=== PATIENT | female | born 1980 | race Caucasian/White ===

== ENCOUNTER 2017-01-03 15:28 | Observation (INO) ==
[2017-01-03] MEDS ORDERED: Ringers Solution, Lactated 1,000 ML ONE (16:01)
[2017-01-03] MEDS ORDERED: Ringers Solution, Lactated 1,000 ML IVC ONE (16:09)
[2017-01-03] MEDS ORDERED: Ondansetron 4 MG/2 ML VIAL IVP PRN (16:11)
--- NOTE | 2017-01-03 16:24 | OB/GYN Progress Note ---
Date of Encounter: 01/03/17 Time of Encounter: 16:17 - Assessment and Plan (1) Nausea and vomiting during Current Visit: Yes Status: Acute LR 1L bolus, zofran ivp (2) 28 weeks gestation of Current Visit: Yes Status: Acute (3) Cramping complicating , antepartum Current Visit: Yes Status: Acute Will observe contraction pattern. Will reassess after fluid bolus Subjective - Subjective Interval history: 36 year old pt. of Dr. Corona, presents to triage with nausea for the last 4 days, emesis and unable to keep food down for last 24 hours. Pt states she started cramping today and came to the hosptial, denies vaginal bleeding and leaking of fluid. Pt did have intercourse last night. Pt has a history or labor, but not delivery with 2 prior pregnancies. course uncomplicated except for vanishing twin. Antepartum ROS: movement normal, contractions, no loss of fluid, no vaginal bleeding Objective - Vital Signs Vital Signs: Intake and Output 01/03/17 01/03/17 01/03/17 07:59 15:59 23:59 Other: Weight 86.1 kg Patient Weight 01/03/17 23:59 Weight 86.1 kg - Exam FHR comments: Appropriate for gestational age baseline 150 Auscultation: bilateral: normal Abdomen: Present: normal appearance, soft, gravid Uterus: Present: normal Cervical dilation: fingertip Cervix effacement: 75 station: -3
[2017-01-03 18:56] LABS: Color,Urine Yellow (Yellow)
--- NOTE | 2017-01-03 18:56 | Discharge Summary ---
Date of Encounter: 01/03/17 Time of Encounter: 19:03 - Discharge Diagnosis (1) Nausea and vomiting during Priority: Primary Status: Acute Comments: 1L LR bolus and zofran given. Tolerated PO intake of juice and crackers without difficulty. (2) 28 weeks gestation of Priority: Secondary Status: Acute (3) Cramping complicating , antepartum Priority: Primary Status: Acute Comments: PT states feels much less crampy. Contractions have decreased. VE unchanged remains fingertip/75/-3 - Discharge Medications Home Medications: Vit Calc,Iron,Folic [ Vitamins] 1 each PO DAILY 05/15/16 [ History] Promethazine 01/03/17 [History] Tamiflu 01/03/17 [History] Allergies/Adverse Reactions: Allergies Penicillins [PCN] Allergy (Verified 05/15/16 12:01) swelling Date of admission: 01/03/17 15:28 Primary care physician: PCP NO - Patient Status Disposition: Home, Self-Care Condition: Good Functional capacity at discharge: independent ambulation Overall status at discharge: patient is back to baseline - Discharge Instructions Follow Up With: NO,PCP [Primary Care Provider] - Hospital Course RESIDENTIAL INSTALLER Time Attestation: Total time spent providing and/or coordinating discharge services: Time Spent: Less than 30 minutes Exam - Constitutional General appearance IM: A&O X 3 - Respiratory Respiratory exam: Present: CTAB - Cardiovascular Cardiovascular exam IM: Present: RRR, +S1 - GI/Abdominal GI/Abdominal exam IM: soft (gravid soft ) - Extremities Exam Extremities exam IM: Present: normal inspection - Neurological Exam Neurological exam: oriented X3 - VTE Reasons for not Prescribing Prophylaxis: Treatment not Indicated - Low risk for VTE
[2017-01-03 18:57] LABS: Bilirubin,Urine Negative (Negative); Blood,Urine Negative (Negative); Clarity,Urine Cloudy (Clear); Glucose,Urine (UA) Normal (Normal); Ketones,Urine Negative (Negative); Leukocyte Esterase,Urine Negative (Negative); Nitrite,Urine Negative (Negative); Protein,Urine 30 mg/dL (Neg-Trace); Specific Gravity,Urine 1.025 (1.010-1.025); Urobilinogen,Urine Normal (Normal)
[2017-01-03 19:01] LABS: Bacteria,Urine Moderate per hpf (None-Few); RBC,Urine 0-3 per hpf (0-3); Squamous Epithelial Cell,Urine Many per lpf (None-Few)
[2017-01-03 19:02] LABS: Mucus,Urine Many (Few)
== END 2017-01-03 19:38 | disposition home or self-care (01) ==
LOC: 1NENULAB

== ENCOUNTER 2017-02-24 16:46 | Observation (INO) ==
[2017-02-24 17:13] LABS: Bilirubin,Urine Negative (Negative); Blood,Urine Negative (Negative); Clarity,Urine Clear (Clear); Color,Urine Yellow (Yellow); Glucose,Urine (UA) Normal (Normal); Ketones,Urine Trace mg/dL (Negative); Leukocyte Esterase,Urine Negative (Negative); Nitrite,Urine Negative (Negative); Protein,Urine Negative (Neg-Trace); Specific Gravity,Urine 1.015 (1.010-1.025); Urobilinogen,Urine Normal (Normal)
--- NOTE | 2017-02-24 19:48 | OB/GYN Progress Note ---
Date of Encounter: 02/24/17 Time of Encounter: 19:30 - Assessment and Plan (1) and not yet delivered in third trimester Current Visit: Yes Status: Acute (2) 35 weeks gestation of Current Visit: Yes Status: Acute (3) uterine contractions in third trimester, antepartum Current Visit: Yes Status: Acute Labor precautions given she will be discharged home and she will follow up in the office in 2 days if no change Subjective - Subjective Interval history: Patient is a 36-year-old 6 para 3 at 35 weeks who presented to labor and delivery complaining of contractions every 1 minute lasting 90 seconds. She states this has been going on for approximately 2 hours prior to arriving to the hospital. She denied any dysuria urgency frequency or vaginal discharge no leaking of fluid. Patient states this is her fourth baby and she got concerned. Patient was having what appeared to be some contractions she described as 7 out of 10 pain she was talking did not appear to be then uncomfortable. On initial evaluation patient was 1 cm 50% and ballotable. We did have the patient ambulate for an hour she was placed back on the monitor no change in her contraction pattern and no change in cervical exam. At this point we felt it was safe to send patient home and she will follow up in the office if contractions get worse she will come back. Antepartum ROS: contractions Objective - Exam FHR: category 1 FHR comments: heart tones 140s reactive contractions irregular every 3-5 minutes Abdomen: Present: gravid Cervical dilation: 1 Cervix effacement: 50 station: ballotable - Labs Labs: Abnormal lab results Urine Ketones Trace mg/dL (Negative) H 02/24/17 17:04
== END 2017-02-24 19:52 | disposition home or self-care (01) ==
LOC: 1NENULAB
PROVIDERS: ADMIT Obstetrics & Gynecology; ATTEND Obstetrics & Gynecology

== ENCOUNTER 2017-03-08 13:45 | Observation (INO) ==
--- NOTE | 2017-03-08 14:25 | OB/GYN Progress Note ---
Date of Encounter: 03/08/17 Time of Encounter: 14:20 - Assessment and Plan (1) 37 weeks gestation of Current Visit: Yes Status: Acute (2) NST (non-stress test) reactive Current Visit: Yes Status: Acute (3) Cramping complicating , antepartum Current Visit: No Status: Acute No cervical change since last OB appointment. Mild, irregular contractions on toco. NST reactive. Discharge home with labor precautions. Subjective - Subjective Interval history: 36 year-old presenting at 37w1d with c/o contractions every minute lasting a minute. She also reports less movement today but she has been feeling some movement. No large gush of fluid but she had some wetness 2 days ago. No other complaints. This has been complicated by vanishing twin , borderline elevated 3 hour GTT, and Rh negative. Antepartum ROS: contractions, no loss of fluid (Pt does admit some thin discharge 2 days ago), no vaginal bleeding, no movement normal Objective - Exam FHR: category 1 FHR comments: 135 reactive NST Abdomen: Present: soft, gravid. Absent: tenderness Uterus: Absent: tenderness Cervical dilation: 1.5 Cervix effacement: 70 station: -2 Comments: nitrazine negative, no leaking fluid noted on exam
== END 2017-03-08 15:00 | disposition home or self-care (01) ==
LOC: 1NENULAB
PROVIDERS: ADMIT Obstetrics & Gynecology; ATTEND Obstetrics & Gynecology

== ENCOUNTER → 2017-03-16 06:25 | Observation (INO) ==
--- NOTE | 2017-03-16 07:03 | Discharge Summary ---
Date of Encounter: 03/16/17 Time of Encounter: 06:30 - Discharge Diagnosis (1) False labor Priority: Primary Status: Acute Comments: Serial SVE no change per RN Reactive NST per RN No contractions on TOCO or per palpation Discharged home with labor precautions and kick counts Follow up in office with routine care (2) 38 weeks gestation of Priority: Secondary Status: Acute - Discharge Medications Home Medications: Vit Calc,Iron,Folic [ Vitamins] 1 each PO DAILY 05/15/16 [ History] Allergies/Adverse Reactions: Allergies Penicillins [PCN] Allergy (Verified 03/16/17 04:58) swelling Date of admission: 03/16/17 04:48 Discharging clinician: Carmina Mendoza - Patient Status Disposition: Home, Self-Care Condition: Good Functional capacity at discharge: independent ambulation - Discharge Instructions Follow Up With: Maurice Corona MD [Partnered Physician] - Additional Instructions: LABOR AND DELIVERY DISCHARGE INSTRUCTIONS Signs and Symptoms to be Reported to your Doctor Immediately: * Sudden gush, continuous or intermittent lead of fluid from vagina (note the time of gush and color of fluid) * Onset of bright red vaginal bleeding with or without pain (if you had a vaginal exam during this visit you may notice some dark red spotting. This is normal.) * Contractions that are 5 minutes apart (from the beginning of one contraction to the beginning of the next) and last 45-60 seonds; contractions that you can no longer walk, talk or laugh through. * A change in the baby's activity. This could be an increase or decrease in activity. * Severe headache which does not go away with tylenol. * Sudden swelling in the face, hands, arms and/or legs. * Upper abdominal pain - sometimes associated with heartburn or nausea and is not relieved by Maalox, Mylanta or Tums. * Kick Counts __ One hour after a meal, lay down on one side in a quiet place. Count the number of time the baby moves during an hour. If less than 6 movements, notify your physician Diet: *Force fluids, 8 to 10 tall glasses of fluid per day - may include popsicles and jello *Limit caffeine - this includes chocolate, coffee, tea, any soft drink containing such as all zayra, Unruly Yellow and Mountain Dew Follow at [facility] on 03/20/17 as scheduled. - Diet and Activity Activity: resume usual activities as tolerated Diet: regular diet Hospital Course SHIP LOADER Time Attestation: Total time spent providing and/or coordinating discharge services: Time Spent: Less than 30 minutes - VTE Reasons for not Prescribing Prophylaxis: Treatment not Indicated - Low risk for VTE
== END | disposition home or self-care (01) ==
LOC: 1NENULAB
PROVIDERS: ADMIT Obstetrics & Gynecology; ATTEND Obstetrics & Gynecology

== ENCOUNTER 2017-03-19 21:34 | Inpatient (IN) ==
--- NOTE | 2017-03-19 20:25 | OB/GYN Progress Note ---
Date of Encounter: 03/19/17 Time of Encounter: 20:23 - Assessment and Plan (1) False labor Current Visit: Yes Status: Acute Pt's cervix remains 2/70/-2. Will observe for one hour and d/c home if no change and reassuring FWB. (2) False labor Current Visit: Yes Status: Acute (3) 38 weeks gestation of Current Visit: No Status: Acute Subjective - Subjective Principal diagnosis: False labor Interval history: Pt presents with freq sharp stabbing pains and UC's q 2 min. No vb or LOF Objective - Exam FHR: category 1 Auscultation: bilateral: normal Abdomen: Present: normal appearance Uterus: Present: normal
[2017-03-19] MEDS ORDERED: Famotidine 20 MG/2 ML VIAL IVP PRN (21:37)
[2017-03-19] MEDS ORDERED: Ondansetron 4 MG/2 ML VIAL IVP PRN (21:37)
[2017-03-19] MEDS ORDERED: Naloxone 0.4 MG/ML INJ IVP PRN (21:37)
[2017-03-19 22:07] LABS: Basophils % 0.1 %; Eosinophils # 0.2 K/mcL (0.0-0.6); Eosinophils % 1.5 %; Hematocrit 37.2 % (35.3-44.9); Hemoglobin 12.6 g/dL (11.5-15.4); Immature Granulocytes % 0.5 % (0-4); Lymphocytes # 1.6 K/mcL (0.6-4.6); Lymphocytes % 15.5 %; Mean Corpuscular HGB Conc 33.9 g/dL (31.6-35.5); Mean Corpuscular Hemoglobin 27.8 pg (28.0-33.3); Mean Corpuscular Volume 81.9 fL (83.0-100.0); Mean Platelet Volume 9.8 fL (9.4-12.4); Monocytes # 0.7 K/mcL (0.0-1.3); Monocytes % 6.7 %; Neutrophils # 7.8 K/mcL (1.6-8.9); Platelet Count 321 K/mcL (140-400); Red Blood Count 4.54 M/mcL (3.82-4.97); Red Cell Distribution Width 13.3 % (11.5-14.5); Segmented Neutrophils % 75.7 %
[2017-03-19] MEDS: Ringers Solution, Lactated 1,000 ML IVC SCH (22:21)
[2017-03-19] MEDS ORDERED: *HR* FentaNYL (PF) 100 MCG/2 ML VIAL ONE (23:19)
[2017-03-19] MEDS ORDERED: Epidural Premix (fent/bupiv) 0 ML EP ONE (23:19)
[2017-03-19] MEDS ORDERED: Bupivacaine-MPF 0.25% 10 ML VIAL ONE (23:19)
--- NOTE | 2017-03-20 00:08 | Anesthesia Evaluation PreOp ---
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 worse LLE > RLE) Other Medical History: Denies Any Significant HX Anesthesia History: No Prior Anesthetic Complications (h/o 3 previous CLEs; no issues with 1st, 2nd didn't work, 3rd took awhile to "set in"; denies personal or family h/o anesthesia complications w/ GA), Past Anesthesia : Yes Test: Positive Alcohol Use: none Drug use: none Medications and Allergies Allergies Penicillins [PCN] Allergy (Verified 03/19/17 20:24) swelling - Meds/Allergy Pre-op Review Medications Reviewed: Yes Allergies Reviewed: Yes Beta Blockers on Current Med List: No Anesthesia Results - Labs 03/19/17 21:55 Anesthesia Exam O2 Sat Height 1.55 m Weight 85.1 kg NPO (# of Hours): solids > 8hrs Pain Scale: 8 Pain Scale Used: Numeric (1 - 10) - HEENT Pupil (Motor): Pupils equal Mallampati: II Teeth: Normal Oral Opening: Greater than 3 - APPLICATIONS SALES CONSULTANT LOC: Oriented APPLICATIONS SALES CONSULTANT Motor: Normal RUE, Normal LUE, Normal RLE, Normal LLE, Normal Face APPLICATIONS SALES CONSULTANT Sensory: Normal: RUE, LUE, RLE, LLE, Face - Cardiac Rhythm: Regular Murmur: None - Pulmonary Breath Sounds: bilateral Clear Respiratory Effort: Symmetrical Anesthesia Assess/Plan ASA Score: 2 Modified Carmne Scale for Level of Consciousness: Cooperative, oriented, and tranquil Anesthetic Plan: Regional Autologous Blood: No Monitoring Plan: Standard Monitors Recovery Plan: Other
--- NOTE | 2017-03-20 00:11 | Anesthesia Procedures ---
Date of Encounter: 03/20/17 Time of Encounter: 00:09 Procedures: Anesthesia - Epidural/Spinal Patient ID/Chart reviewed: Yes Patient examined: Yes OB Eval: Gestational age: 38 weeks 5 days OB Eval: : 5 OB Eval: Hx Para: 3 OB Eval: Dilated at (cm): 2 OB Eval: Contractions: Non-stressed pattern Consent Obtained: Yes Supplemental Oxygen: None/Room Air Site Prep: Aseptic Technique, Sterile prep and drape, Povidone-Iodine 1% Patient position: upright Local Anesthetic: Lidocaine 1% Amount of Local Anesthetic used: 3 Touhy Needle Gauge: 18 Touhy Needle Depth (cm): 7 Catheter Depth at Skin (cm): 14 (cath placed at 2345) Test Dose (1.5% Lido + Epi): Volume given (mls): 5 (given in 2 equally divided doses over a period of 5 min) Test Dose Result: Negative Loading Dose: 0.25% Marcaine (mls): 5 Loading Dose: Fentanyl (mcg): 100 Loading Dose Administered: Thru Catheter Infusion Med: 0.125% Bupivacaine w/ 2 mcg/ml Fentanyl Infusion Rate (mls/hr): 12 (w/ demand bolus of 4mL q20min PRN) Catheter Secured in Place: Tegaderm, Tape Interspace Used: L3-L4 Loss of Resistance (LUIS): Yes Blood: No CSF: No Paresthesia: Yes (transient--LLE) Vitals + FHT's: please refer to [facility] RN's electronic documentation for VS
[2017-03-20] MEDS ORDERED: Bupivacaine-MPF 0.25% 10 ML VIAL EP ONE (00:12)
[2017-03-20] MEDS ORDERED: *HR* FentaNYL (PF) 100 MCG/2 ML VIAL EP ONE (00:12)
[2017-03-20] MEDS ORDERED: Epidural Premix (fent/bupiv) 110 ML EP SCH (00:15)
[2017-03-20] MEDS ORDERED: EPHEDrine 50 MG/ML VIAL ONE (00:20)
--- NOTE | 2017-03-20 00:50 | OB/GYN History & Physical ---
Date of Encounter: 03/20/17 Time of Encounter: 00:48 Assessment and Plan (1) 38 weeks gestation of Current visit: No Status: Acute Pt presents to labor and delivery with c/o freq uc's and pressure. Her cervix was 2 cm on arrival and after 4 hr cervix was 3 cm. She has no vaginal bleeding or LOF> (2) tachycardia during labor Current visit: Yes Status: Acute Upon arrival and during first hour of observation tachycardia mostly 170- 180 was noted. Pt also c/o constant abdominal pain. She had no fever and reported good movement and no recent smoking Given fact that cervix is making change and tachycardia will admit and expect . History of Present Illness Chief complaint: contractions, pelvic pain HPI: Ms. Rivas is a 36 year old female female presents with c/o pelvic pressure and pain that has worsened over last few hours. She reports constant sharp stabbing pains and uc's q 2-3 min. She denies VB or LOF. was complicated by vanishing twin in early gestation. Past Med Surg Social Fam HX - Past Medical History Source: patient, old records reviewed Medical history: asthma, GERD Psychiatric history: anxiety, depression, panic disorder - Past Surgical History Surgical History: cholecystectomy - Social History Smoking Status: Former smoker Smokeless Tobacco Status: No Alcohol use: none Drug use: none - Family History Mother Adopted: No Family Member Ethnicity: Non- Living Status: Still Living Hx Family Cardiac Disorders: Yes (HTN) Hx Family Respiratory Disorders: No Hx Family Cancer: Yes (endometriatic cancer, hysterectomy) Hx Family GI Disorders: No Hx Family Endocrine Disorder: No Hx Family Neuromuscular Disorders: No Hx Family Neurologic Disorders: No Hx Family HEENT Disorders: No Hx Family Autoimmune Disorders: No Father Adopted: No Living Status: Hx Family Cardiac Disorders: Yes (HTN) Hx Family Neuromuscular Disorders: No Hx Family Neurologic Disorders: No Obstetrical History - Pregnancies : 5 Medications and Allergies Allergies Penicillins [PCN] Allergy (Verified 03/19/17 20:24) swelling Exam - Constitutional Constitutional: well developed - HEENT HEENT: EOMI, PERRL - Neck Neck exam: full ROM - Lungs Respiratory exam: CTAB - Cardiovascular Cardiovascular exam: RRR - Abdomen Abdomen: Present: gravid - Extremities Extremities exam: full ROM Deep Tendon Reflex Grade: 2+ Normal - Cervix Dilation: 3 ((was 2 on arrival)) Effacement: 70 Station: -2 Results Result Diagrams: 03/19/17 21:55 Abnormal lab results MCV 81.9 fL (83.0-100.0) L 03/19/17 21:55 MCH 27.8 pg (28.0-33.3) L 03/19/17 21:55 All other labs normal. - VTE Reasons for not Prescribing Prophylaxis: Treatment not Indicated - Low risk for VTE
--- NOTE | 2017-03-20 00:57 | OB Labor Progress Note ---
Date of Encounter: 03/20/17 Time of Encounter: 00:56 Labor Progress Note - Subjective Subjective: Pt comfortable with epidural. - Cervix Cervix: 3/70/-2 - Heart Tones Heart Tones: 150's with RNST - [place]: uc's q 3 min - Interventions Interventions: AROM small amt of clear fluid. - Plan Plan: Expect .
[2017-03-20] MEDS ORDERED: Epidural Premix (fent/bupiv) 110 ML EP ONE ×4 (04:43→20:08)
--- NOTE | 2017-03-20 06:51 | OB Labor Progress Note ---
Date of Encounter: 03/20/17 Time of Encounter: 06:49 Labor Progress Note - Subjective Subjective: Pt comfortable with epidural, feeling more pressure. - Cervix Cervix: 4/70/-2 - Heart Tones Heart Tones: RNST - [place]: uc's q 2-3 min. - Plan Plan: Expect
[2017-03-20] MEDS ORDERED: Oxytocin 20 units/ LR 1000 mL 20 UNIT/1,000 ML BAG IVC ONE (07:32)
[2017-03-20] MEDS: Ringers Solution, Lactated 1,000 ML IVC SCH (07:55)
[2017-03-20] MEDS ORDERED: Oxytocin 20 units/ LR 1000 mL 20 UNIT/1,000 ML BAG IVC SCH ×2 (08:00→22:32)
--- NOTE | 2017-03-20 08:04 | OB Labor Progress Note ---
Date of Encounter: 03/20/17 Time of Encounter: 08:02 Labor Progress Note - Subjective Subjective: Pt resting in bed. States feels more of contractions, but comfortable with epidural - Cervix Cervix: 80/-3 - Interventions Interventions: Start pitcoin - Plan Plan: Pitocin per policy until adequate labor pattern Clear liquids Pain management per anesthesia Anticipate
[2017-03-20] MEDS ORDERED: *HR* Ropivacaine/PF 0.2% 10 ML AMPUL ONE ×3 (08:21→18:55)
[2017-03-20] MEDS ORDERED: *HR* FentaNYL (PF) 100 MCG/2 ML VIAL ONE ×2 (08:21→18:55)
--- NOTE | 2017-03-20 08:30 | Anesthesia Progress Note ---
Date of Encounter: 03/20/17 Time of Encounter: 08:29 Anesthesia Note - Note Note: 03/20/17 08:29 C/o lower abdominal cramping 7/10 with contractions. Bolus of 8ml 0.2% ropivicaine with 2 ml (100mcg) fentanyl given via epidural.
--- NOTE | 2017-03-20 12:33 | OB Labor Progress Note ---
Date of Encounter: 03/20/17 Time of Encounter: 12:31 Labor Progress Note - Subjective Subjective: Called to room by patient family. Pt reports feeling abdominal pain and pressure. - Cervix Cervix: 5/80/-2 - Heart Tones Heart Tones: 135/moderate/+accels/-decels/ Cat I - Interventions Interventions: IUPC placed. Pitocin at 10 - Plan Plan: Continue to increase pitocin per policy until adequate labor. Pain management by anesthesia Anticipate
--- NOTE | 2017-03-20 12:51 | Anesthesia Progress Note ---
Date of Encounter: 03/20/17 Time of Encounter: 12:49 Anesthesia Note - Note Note: 03/20/17 12:49 Called to patient room for low abdominal pain 8/10 with contractions, 10ml 0.2% ropivicaine via epidural.
--- NOTE | 2017-03-20 16:21 | OB Labor Progress Note ---
Date of Encounter: 03/21/17 Time of Encounter: 16:19 Labor Progress Note - Cervix Cervix: 5/80/-2 - Heart Tones Heart Tones: 130/moderate/accels with early;s and variable. - [place]: IUPC 2-3 minutes - Plan Plan: Continue current management plan but increase max pitocin dose to 30
--- NOTE | 2017-03-20 19:39 | Anesthesia Progress Note ---
Date of Encounter: 03/20/17 Time of Encounter: 19:37 Anesthesia Note - Note Note: 03/20/17 19:37 c/o 8/10 low abdominal pain with contractions. 8ml 0.2% ropivicaine with 100mcg fentanyl via epidural
--- NOTE | 2017-03-20 19:58 | OB Labor Progress Note ---
Date of Encounter: 03/20/17 Time of Encounter: 19:00 Labor Progress Note - Subjective Subjective: Patient feeling some pain with contractions, has had relief since epidural bolus - Cervix Cervix: 04/11/2 - Heart Tones Heart Tones: 135/accels/variables earlies/ Cat II - Plan Plan: Patient placed in lateral positions to encourage rotation. Pitocin per protocol until adequate contractions. Anticipate
[2017-03-20] MEDS ORDERED: Lidocaine 1% 20 ML MDV ONE (20:08)
--- NOTE | 2017-03-20 21:56 | OB/GYN Procedure Note ---
Delivery - Delivery Date: 03/20/17 Provider: Lisset Stevens ) Intrapartum events: none Delivery augmentation: rupture of membranes, pitocin Delivery monitor: external FHT, external uterine, internal uterine Anesthesia: local (for repair ), epidural - Infant (s) Infant A Delivery Date: 03/20/17 Infant Delivery Time: 21:17 Presentation: vertex Position: OA Route of delivery: Gender: Male Viability: Viable Pounds: 8 Ounces: 3 Weight Gram: 3710 kg at 1 minute: 8 at 5 mins: 9 Shoulder Dystocia: not encountered Specimens collected: cord blood Placenta: spontaneous Cord: 3 umbilical vessels - Repair Episiotomy: none Laceration Description: Labial - Complications Delivery complications: none - Disposition Mom disposition: stable in LDR [place] disposition: stable in LDR - Comments Comments: Maternal desire to push. Directed maternal bearing down efforts to spontaneous vaginal delivery of liveborn male. Vertex delivered in OA position, no nuchal cord noted shoulders easily followed, no shoulder dystocia encountered. Vigorous effort placed on maternal abdomen Apgars 8/9. Placenta delivered spontaneously (Ceci) intact, fundus firm and Pitocin started per policy EBL 150. Second-degree labial laceration noted and repaired. Dr. Garcias present for entire procedure
[2017-03-20] MEDS ORDERED: Benzocaine/Menthol 56 GM AEROSOL SPRAY TP PRN (22:32)
[2017-03-20] MEDS ORDERED: Lanolin 28 GM TUBE TP PRN (22:32)
[2017-03-20] MEDS ORDERED: Rho Immune Globulin 1,500 UNIT SYRINGE IM PRN (22:32)
[2017-03-20] MEDS ORDERED: Acetaminophen 325 MG TABLET PO PRN (22:32)
[2017-03-20] MEDS: Ibuprofen 600 MG TABLET PO PRN (23:01)
[2017-03-20] MEDS ORDERED: Ondansetron 4 MG/2 ML VIAL IVP PRN (23:26)
[2017-03-21 08:20] LABS: Basophils % 0.1 %; Eosinophils # 0.1 K/mcL (0.0-0.6); Eosinophils % 0.6 %; Hematocrit 33.6 % (35.3-44.9); Hemoglobin 11.5 g/dL (11.5-15.4); Immature Granulocytes % 0.5 % (0-4); Lymphocytes # 1.4 K/mcL (0.6-4.6); Lymphocytes % 8.7 %; Mean Corpuscular HGB Conc 34.2 g/dL (31.6-35.5); Mean Corpuscular Hemoglobin 27.7 pg (28.0-33.3); Mean Platelet Volume 9.8 fL (9.4-12.4); Monocytes # 1.3 K/mcL (0.0-1.3); Neutrophils # 12.9 K/mcL (1.6-8.9); Platelet Count 251 K/mcL (140-400); Red Blood Count 4.15 M/mcL (3.82-4.97); Red Cell Distribution Width 13.4 % (11.5-14.5); Segmented Neutrophils % 82.1 %
[2017-03-21] MEDS ORDERED: Prenatal Vit/FA 1 EACH TABLET PO SCH (09:00)
[2017-03-21] MEDS: Ibuprofen 600 MG TABLET PO PRN ×2 (09:21→23:47)
--- NOTE | 2017-03-21 11:34 | Anesthesia Evaluation PreOp ---
Date of Encounter: 03/21/17 Time of Encounter: 11:58 - Past History Planned Operation: BPS Cardiac History: Denies any Significant Hx Pulmonary History: Asthma, [place] THEORETICAL PHYSICIST History: Other (scoliosis, chronic back pain with radiation down left leg) Other Medical History: Denies Any Significant HX Anesthesia History: No Prior Anesthetic Complications, Past Anesthesia Alcohol Use: none Drug use: none Medications and Allergies Allergies Penicillins [PCN] Allergy (Verified 03/19/17 20:24) swelling - Meds/Allergy Pre-op Review Medications Reviewed: Yes Allergies Reviewed: Yes Beta Blockers on Current Med List: No Anesthesia Results - Labs 03/21/17 08:12 Anesthesia Exam Vital Signs/O2 Sat, Most Current Temp Pulse Resp BP Pulse Ox 98.1 F 73 18 116/60 97 03/21/17 02:00 03/21/17 02:00 03/21/17 02:00 03/21/17 02:00 03/21/17 02:00 Height: 5'1''/1.55 m Weight: 195 lbs/88.6 kg NPO (# of Hours): 8 Pain Scale: 0 Pain Scale Used: Numeric (1 - 10) - HEENT Pupil (Motor): EOMI Mallampati: II Teeth: Normal Oral Opening: Greater than 3 - THEORETICAL PHYSICIST LOC: Oriented THEORETICAL PHYSICIST Motor: Normal RUE, Normal LUE, Normal RLE, Normal LLE, Normal Face THEORETICAL PHYSICIST Sensory: Normal: RUE, LUE, RLE, LLE, Face - Cardiac Rhythm: Regular Murmur: None - Pulmonary Breath Sounds: bilateral Clear Respiratory Effort: Symmetrical Anesthesia Assess/Plan ASA Score: 2 Modified Carmen Scale for Level of Consciousness: Cooperative, oriented, and tranquil Anesthetic Plan: General Monitoring Plan: Standard Monitors Recovery Plan: PACU
--- NOTE | 2017-03-21 11:44 | OB/GYN Progress Note ---
Date of Encounter: 03/21/17 Time of Encounter: 11:42 - Assessment and Plan (1) Vaginal delivery Current Visit: Yes Status: Acute Continue routine care Pain well controlled Discharge home today or tomorrow post BPS Subjective - Subjective Principal diagnosis: Vaginal Delivery Interval history: S/P vaginal delivery day 1 Patient states she is doing well. Pain is well controlled. She is She desires permanent sterilization and is currently NPO for scheduled BPS this afternoon. VSDebbie Quinteros is light Discharge today after recovery from procedure or tomorrow Patient reports: voiding normally, pain well controlled, ambulating normally, other (NPO for BPS) Objective - Latest Vital Signs Latest vital signs: Vital Signs Temp Pulse Resp BP Pulse Ox 03/21/17 02:00 98.1 F 73 18 116/60 97 03/21/17 01:00 98.4 F 81 16 108/51 99 03/20/17 23:55 98.4 F 82 14 124/66 98 Intake and Output 03/20/17 03/21/17 03/21/17 23:59 07:59 15:59 Output Total 1100 / 1100 Balance -1100 / -1100 Output: Urine 1100 / 1100 Other: Weight 88.6 kg - Exam Lungs: bilateral: normal Chest: Normal S1, Normal S2 Extremities: Present: normal Abdomen: Present: normal appearance, soft Uterus: Present: normal, firm Uterus Position: 2 Fingers Below Umbilicus, Midline - Labs Labs: Laboratory Results - last 24 hr 03/21/17 08:12 WBC 15.7 H D RBC 4.15 Hgb 11.5 Hct 33.6 L MCV 81.0 L MCH 27.7 L MCHC 34.2 RDW 13.4 Plt Count 251 MPV 9.8 Immature Gran % 0.5 Seg Neutrophils % 82.1 Lymphocytes % 8.7 Monocytes % 8.0 Eosinophils % 0.6 Basophils % 0.1 Neutrophils # 12.9 H Lymphocytes # 1.4 Monocytes # 1.3 Eosinophils # 0.1 Basophils # 0.0
[2017-03-21] MEDS ORDERED: Ringers Solution, Lactated 1,000 ML ONE ×2 (11:53→13:42)
[2017-03-21] MEDS ORDERED: *HR* Propofol 200 MG/20 ML VIAL IVP ONE (12:02)
[2017-03-21] MEDS ORDERED: *HR* FentaNYL (PF) 100 MCG/2 ML VIAL ONE ×2 (12:02→13:08)
[2017-03-21] MEDS ORDERED: Ondansetron 4 MG/2 ML VIAL ONE (12:04)
[2017-03-21] MEDS ORDERED: *HR* Succinylcholine 200 MG/10 ML VIAL IVP ONE (12:04)
[2017-03-21] MEDS ORDERED: Lidocaine -MPF 2% 5 ML VIAL ONE (12:04)
[2017-03-21] MEDS ORDERED: Dexamethasone 4 MG/ML VIAL ONE (12:04)
--- NOTE | 2017-03-21 13:41 | Operative Note ---
Date of procedure: 03/21/17 Pre-op diagnosis: request for permanent sterilization Post-op diagnosis: same Procedure: Bilateral partial salpingectomy Anesthesia: GETA Surgeon: Xin Cruz Estimated blood loss (cc): 10 Condition: stable Disposition: floor Procedure in Detail: Patient was taken the operative places supine position and general anesthetic was administered. Skin was then prepped and draped in usual sterile fashion. A transverse infraumbilical incision was performed and carried down to the fascial layer into the abdominal cavity was entered. The left fallopian tube was first identified grasped and traced distally until the fimbriated end was seen. A midportion of the tube was then doubly ligated with 0 plain suture to include the fimbriated end and this isolated segment was then excised. Good hemostasis was present. The procedure was then repeated in a similar fashion for the right fallopian tube. Again good hemostasis present.the fascial layer then closed with 0 Vicryl suture in a running nonlocking fashion. Again good hemostasis was present. The skin was then closed with 4-0 Vicryl suture in a running subcuticular fashion. Patient all procedure well, all sponge needle and instrument counts reported as correct. Estimated blood loss was minimal and she was taken recovery room in stable condition.
[2017-03-21] MEDS ORDERED: Ondansetron 4 MG/2 ML VIAL IVP PRN (13:59)
[2017-03-21] MEDS ORDERED: *HR* HYDROmorphone (PF) 1 MG/ML SYRINGE IVP PRN (13:59)
--- NOTE | 2017-03-21 15:44 | Anesthesia Evaluation Post Op ---
Date of Encounter: 03/21/17 Time of Encounter: 15:43 - Vital Signs Vital Signs: Vital Signs/O2 Sat, Most Current Temp Pulse Resp BP Pulse Ox 97.7 F 62 14 108/66 96 03/21/17 14:39 03/21/17 14:39 03/21/17 14:39 03/21/17 14:39 03/21/17 14:39 - Lungs Lungs: Clear Ascult./Percussion - Airway Airway: Non-obstructed - Cardiovascular Regular Rate - Mental Status Mental Status: Alert & Oriented, Answers Appropriately - Pain Pain Scale: 3 Pain Scale used: Numeric (1 - 10) - Nausea Vomiting Nausea Vomiting: Not Present - Hydration Hydration: NPO - Discharge PostOp Status: Transfer Patient to floor (awake, stable)
[2017-03-21] MEDS: *HR* Acetaminophen w/Cod 300-30 mg 1 TAB TABLET PO PRN ×2 (15:49→22:15)
[2017-03-22] MEDS ORDERED: *HR* OxyCODONE/APAP 5/325 TABLET PO ONE (00:29)
[2017-03-22] MEDS: Ibuprofen 600 MG TABLET PO PRN (06:37)
--- NOTE | 2017-03-22 08:29 | Discharge Summary ---
Date of Encounter: 03/22/17 Time of Encounter: 08:26 - Discharge Diagnosis (1) Vaginal delivery Priority: Primary Status: Acute Comments: Continue routine care discharge home today follow up in 4-[address] Corona. (2) tubal ligation planned Priority: Secondary Status: Acute Comments: Routine postop care (3) Breast feeding status of mother Priority: Secondary Status: Acute Comments: support prn - Discharge Medications Prescriptions: Ibuprofen [Motrin] 600 mg PO Q6HR PRN #60 tablet PRN Reason: Cramping Breast Pump [BREAST PUMP] 1 each .ROUTE AD #1 each Home Medications: Breast Pump [BREAST PUMP] 1 each .ROUTE AD #1 each 03/22/17 [Rx] Ibuprofen [Motrin] 600 mg PO Q6HR PRN #60 tablet 03/22/17 [Rx] Lanolin 1 appl TP QID PRN #0 tube 03/22/17 [Rx] Vit/FA 1 each PO DAILY tablet 03/22/17 [Rx] Allergies/Adverse Reactions: Allergies Penicillins [PCN] Allergy (Verified 03/19/17 20:24) swelling Data Procedures and tests throughout hospitalization: Laboratory Tests 03/19/17 03/21/17 21:55 08:12 WBC 10.2 15.7 H D RBC 4.54 4.15 Hgb 12.6 11.5 Hct 37.2 33.6 L MCV 81.9 L 81.0 L MCH 27.8 L 27.7 L MCHC 33.9 34.2 RDW 13.3 13.4 Plt Count 321 251 MPV 9.8 9.8 Immature Gran % 0.5 0.5 Seg Neutrophils % 75.7 82.1 Lymphocytes % 15.5 8.7 Monocytes % 6.7 8.0 Eosinophils % 1.5 0.6 Basophils % 0.1 0.1 Neutrophils # 7.8 12.9 H Lymphocytes # 1.6 1.4 Monocytes # 0.7 1.3 Eosinophils # 0.2 0.1 Basophils # 0.0 0.0 Date of admission: 03/19/17 21:34 Primary care physician: PCP NO Consults: 03/20/17 22:32 Consult to Preventive Medicine Specialist [CONS] Routine Comment: Vaginal delivery, consult needed Discharging clinician: Cayla Andrade Anticipated date of discharge: 03/22/17 - Patient Status Disposition: Home, Self-Care Condition: Good Functional capacity at discharge: independent ambulation - Discharge Instructions Follow Up With: NO,PCP [Primary Care Provider] - Maurice Corona MD [Partnered Physician] - - Diet and Activity Activity: increase activity as tolerated Diet: regular diet Hospital Course Reason for admission: active labor Delivery: Episiotomy: none Laceration: 2nd degree Other procedures: tubal ligation complications: none Discharge diagnosis: IUP at term delivered [place] baby: male (breast feeding) Time Attestation: Total time spent providing and/or coordinating discharge services: Time Spent: Less than 30 minutes Exam - Constitutional Vitals: Temp Pulse Resp BP Pulse Ox 97.9 F 62 18 95/49 98 03/22/17 03:42 03/22/17 03:42 03/22/17 03:42 03/22/17 03:42 03/22/17 03:42 General appearance IM: answers questions appropriately - Respiratory Respiratory exam: Present: CTAB - Cardiovascular Cardiovascular exam IM: Present: RRR, +S1, +S2 - GI/Abdominal GI/Abdominal exam IM: normal bowel sounds Incision: normal, dry, dressed (bandaid) - Uterine Tone: Firm Uterus Position: 1 Finger Below Umbilicus, Midline - Extremities Exam Extremities exam IM: Present: full ROM, normal capillary refill, normal inspection - Neurological Exam Neurological exam: alert, oriented X3, reflexes normal
[2017-03-22] MEDS ORDERED: Prenatal Vit/FA 1 EACH TABLET PO SCH (09:00)
[2017-03-22] MEDS: *HR* Acetaminophen w/Cod 300-30 mg 1 TAB TABLET PO PRN (09:14)
[2017-03-22 09:31] VITALS: BP 103/58
== END 2017-03-22 12:30 | disposition home or self-care (01) | DRG 541 ==
LOC: 1NENULAB → 1NENUOBS 03-21
PROVIDERS: ADMIT Student in an Organized Health Care Education/Training Program; ATTEND Student in an Organized Health Care Education/Training Program